=== PATIENT | male | born 1950 | race Two or more races ===

== ENCOUNTER 2020-11-03 06:23 | Outpatient (CLI) | payer OTHER | END 2020-11-03 23:59 | disposition home or self-care (01) | LOC: LAB 06:23 | PROVIDERS: ATTEND Ophthalmology | DX: Z01.812 Encounter for preprocedural laboratory examination (principal); Z20.822 Contact with and (suspected) exposure to COVID-19 ==

== ENCOUNTER 2020-11-05 05:59 | Day surgery (SDC) | payer OTHER ==
[2020-11-05] MEDS ORDERED: KETOROLAC 0.5% OPHT DROP 3 ML BOTTLE ONE (06:23)
[2020-11-05] MEDS ORDERED: PHENYLEPHRINE 2.5% OPHT DROP 2 ML BOTTLE ONE (06:24)
[2020-11-05] MEDS ORDERED: CIPROFLOXACIN 0.3% OPHT DROP 2.5 ML BOTTLE ONE (06:24)
[2020-11-05] MEDS ORDERED: TROPICAMIDE 1% OPHT DROP 3 ML BOTTLE ONE (06:24)
[2020-11-05] MEDS ORDERED: CYCLOPENTOLATE 2% OPHT DROP 2 ML BOTTLE ONE (06:25)
[2020-11-05] MEDS ORDERED: BALANCED SALT IRRIG SOLN COMB1 500 ML, EPINEPHRINE-PF 1:1000 0.5 MG IO ONE (07:00)
[2020-11-05] MEDS ORDERED: MOXIFLOXACIN HCL 3 ML OPHT DROPS ONE (07:33)
[2020-11-05] MEDS ORDERED: TIMOLOL MALEATE 0.5% OPHT DROP 5 ML BOTTLE ONE (07:33)
[2020-11-05] MEDS ORDERED: NEO/POLYMYX B/DEXAME OPHT OINT 3.5 GM TUBE ONE (07:33)
[2020-11-05] MEDS ORDERED: TETRACAINE HCL 0.5% OPHT DROP 2 ML BOTTLE ONE (07:33)
[2020-11-05] MEDS ORDERED: BALANCED SALT IRRIG SOLN COMB2 15 ML IRRIG.SOLN ONE (07:33)
[2020-11-05] MEDS ORDERED: PHENYLEPHRINE 10% OPHT DROP 5 ML BOTTLE ONE (07:33)
[2020-11-05] MEDS ORDERED: ATROPINE SULFATE 1% OPHT DROP 2 ML ONE (07:33)
[2020-11-05] MEDS ORDERED: BUPIVACAINE PF 0.5% 30 ML VIAL ONE (07:34)
[2020-11-05] MEDS ORDERED: TRYPAN BLUE 0.5 ML DISP.SYRIN ONE (07:34)
[2020-11-05] MEDS ORDERED: ACETYLCHOLINE CHLORIDE 1% OPHT 1 EA KIT ONE (07:34)
[2020-11-05] MEDS ORDERED: BALANCED SALT IRRIG SOLN COMB1 500 ML ONE (07:34)
[2020-11-05] MEDS ORDERED: HYALURONIDASE,OVINE 200 UNITS/ML VIAL ONE (07:34)
[2020-11-05] MEDS ORDERED: HYALURONATE SODIUM 12.8 MG/0.8 ML DISP.SYRIN ONE (07:35)
[2020-11-05] MEDS ORDERED: LIDOCAINE HCL 2% 20 ML VIAL ONE (07:37)
[2020-11-05] MEDS ORDERED: LIDOCAINE-MPF 2% 5 ML VIAL ONE (07:38)
[2020-11-05] MEDS ORDERED: FENTANYL CITRATE 100 MCG/2 ML AMPUL ONE (07:55)
== END 2020-11-05 10:31 | disposition home or self-care (01) ==
LOC: DS 05:59
PROVIDERS: ATTEND Ophthalmology
DX: H25.812 Combined forms of age-related cataract, left eye (principal); I10 Essential (primary) hypertension; G47.33 Obstructive sleep apnea (adult) (pediatric); Z87.891 Personal history of nicotine dependence; Z79.899 Other long term (current) drug therapy; Z98.890 Other specified postprocedural states
CPT/HCPCS: 71045; A4663; J0171; J3010; J3471; J3490; J7120; J7321; Q9968; V2632

== ENCOUNTER 2021-01-26 06:36 | Outpatient (CLI) | payer OTHER | END 2021-01-26 23:59 | disposition home or self-care (01) | LOC: LAB 06:36 | PROVIDERS: ATTEND Internal Medicine | DX: Z01.812 Encounter for preprocedural laboratory examination (principal); Z20.822 Contact with and (suspected) exposure to COVID-19 ==

== ENCOUNTER 2021-01-28 06:21 | Day surgery (SDC) | payer OTHER ==
[2021-01-28] MEDS ORDERED: KETOROLAC 0.5% OPHT DROP 3 ML BOTTLE ONE (06:48)
[2021-01-28] MEDS ORDERED: CIPROFLOXACIN 0.3% OPHT DROP 2.5 ML BOTTLE ONE (06:48)
[2021-01-28] MEDS ORDERED: CYCLOPENTOLATE 1% OPHT DROP 2 ML BOTTLE ONE (06:50)
[2021-01-28] MEDS ORDERED: PHENYLEPHRINE 2.5% OPHT DROP 2 ML BOTTLE ONE (06:50)
[2021-01-28] MEDS ORDERED: TROPICAMIDE 1% OPHT DROP 3 ML BOTTLE ONE (06:50)
[2021-01-28] MEDS ORDERED: BALANCED SALT IRRIG SOLN COMB1 500 ML, EPINEPHRINE-PF 1:1000 0.5 MG IO ONE (07:00)
[2021-01-28] MEDS ORDERED: MOXIFLOXACIN HCL 3 ML OPHT DROPS ONE (07:18)
[2021-01-28] MEDS ORDERED: BALANCED SALT IRRIG SOLN COMB2 15 ML IRRIG.SOLN ONE (07:18)
[2021-01-28] MEDS ORDERED: NEO/POLYMYX B/DEXAME OPHT OINT 3.5 GM TUBE ONE (07:18)
[2021-01-28] MEDS ORDERED: TIMOLOL MALEATE 0.5% OPHT DROP 5 ML BOTTLE ONE (07:18)
[2021-01-28] MEDS ORDERED: LIDOCAINE-MPF 2% 5 ML VIAL ONE (07:18)
[2021-01-28] MEDS ORDERED: ACETYLCHOLINE CHLORIDE 1% OPHT 1 EA KIT ONE (07:19)
[2021-01-28] MEDS ORDERED: HYALURONATE SODIUM 12.8 MG/0.8 ML DISP.SYRIN ONE (07:19)
[2021-01-28] MEDS ORDERED: HYALURONIDASE,OVINE 200 UNITS/ML VIAL ONE (07:19)
[2021-01-28] MEDS ORDERED: BUPIVACAINE PF 0.5% 30 ML VIAL ONE (07:19)
[2021-01-28] MEDS ORDERED: BALANCED SALT IRRIG SOLN COMB1 0 ML ONE (07:19)
[2021-01-28] MEDS ORDERED: FENTANYL CITRATE 100 MCG/2 ML AMPUL ONE (07:51)
== END 2021-01-28 10:15 | disposition home or self-care (01) ==
LOC: DS 06:21
PROVIDERS: ATTEND Ophthalmology
DX: H25.89 Other age-related cataract (principal); I10 Essential (primary) hypertension; J44.9 Chronic obstructive pulmonary disease, unspecified; Z79.899 Other long term (current) drug therapy; Z98.890 Other specified postprocedural states; Z91.041 Radiographic dye allergy status
CPT/HCPCS: 66984; J0171; J3010; J3471; J3490 ×2; J7120; J7321; V2632; A4663